=== PATIENT | female | born 1965 | race African-American/Black ===

== ENCOUNTER 2017-09-24 10:47 | Emergency (ER) | payer SELFPAY ==
[2017-09-24 10:54] VITALS: BMI 54.9
[2017-09-24] MEDS ORDERED: NITROSTAT SL ONE (10:54)
[2017-09-24] MEDS ORDERED: ASPIRIN ONE (10:54)
[2017-09-24] MEDS ORDERED: ECOTRIN TAB 325 MG PO PRN (10:55)
[2017-09-24] MEDS: NITROSTAT SL PRN ×3 (10:55→11:06)
[2017-09-24] MEDS ORDERED: NS 1000 ML 1,000 ML ONE (10:59)
[2017-09-24] MEDS ORDERED: ASPIRIN PO STA (10:59)
[2017-09-24] MEDS ORDERED: NS 1000 ML 1,000 ML IV SCH (11:00)
--- NOTE | 2017-09-24 11:00 | DR.GENAD ---
HPI - Complaint/Symptoms Chief Complaint Doctors Comments: Patient presents with complaint of chest pain associated with belching since [id number] renetta AM. She states that the pain is across her chest non radiating, no diaaphoresis. She denies cigarettes and states that she has no history of cardiopulmonary disease. She also reports shortness of breath PMH - PMH Past Medical History: Asthma, Hypertension Past Surgical History: No - Family History Family Medical History: Diabetes Mellitus, Hypertension - Social History Do you use any recreational Drugs:: No ROS - Review of Systems Constitutional: No Symptoms Reported Eyes: No Symptoms Reported ENTM: No Symptoms Reported Respiratoy: No Symptoms Reported Cardiovascular: See HPI Gastrointestinal/Abdominal: No Symptoms Reported Genitourinary: No Symptoms Reported Neurological: No Symptoms Reported Musculoskeletal: No Symptoms Reported Integumentary: No Symptoms Reported Hematologic/Lymphatic: No Symptoms Reported Endocrine: No Symptoms Reported Psychiatric: No Symptoms Reported All Other Systems: Reviewed and Negative PE - Vital Signs Vitals: Temperature 98.3 F Pulse Rate [Apical] 112 Pulse Rate 120 Respiratory Rate 22 Blood Pressure [Right Arm] 162/91 Blood Pressure 183/122 O2 Sat by Pulse Oximetry 100 - General General Appearance: Alert, In No Apparent Distress - Head Head Exam: Normal Inspection, Atraumatic - Eyes Eye exam: Normal Appearance, PERRL, EOMI - ENT ENT Exam: Normal Exam External Ear Exam: Normal External Inspection TM/Canal Exam: Bilateral Normal Nose Exam: Normal Nose Exam, Sinus Tenderness Mouth Exam: Normal Inspection Throat Exam: Normal Inspection - Neck Neck Exam: Normal Inspection - Chest Chest Inspection: Normal Inspection - Respiratory Respiratory Exam: Normal Lung Sounds Bilat Respiratory Exam: Bilateral Clear to Auscultation - Cardiovascular Cardiovascular Exam: Regular Rate, Normal Rhythm - Abdominal Exam Abdominal Exam: Normal Inspection Abdominal Tenderness: negative: RUQ, RLQ, LUQ, LLQ, Epigastrium, Suprapubic, Diffuse, Mild, Moderate, Severe, Other - Extremities Extremities Exam: Normal Inspection - Back Back Exam: Normal Inspection - Neurologic Neurological Exam: Alert, Oriented X3, CN II-XII Intact - Psychiatric Psychiatric Exam: Normal Affect - Skin Skin Exam: Warm, Dry Course - Reevaluation 1st: Improved (Denies chest pain at this time 12:45) - Consultation Called: 12:00 (Dr Doshi accepted for transfer for further evaluation) ROR - Labs Reviewed Result Diagrams: 09/24/17 11:05 09/24/17 11:05 Laboratory: WBC 10.6 X10^3/uL (3.6-10.0) H 09/24/17 11:05 RBC 4.72 X10^6/uL (3.5-5.4) 09/24/17 11:05 Hgb 12.8 g/dL (12.0-16.0) 09/24/17 11:05 Hct 38.0 % (36.0-47.0) 09/24/17 11:05 MCV 80.5 fL (80.0-100.0) 09/24/17 11:05 MCH 27.0 pg (27.0-34.0) 09/24/17 11:05 MCHC 33.6 g/dL (33.0-35.0) 09/24/17 11:05 RDW 15.5 % (11.6-16.5) 09/24/17 11:05 Plt Count 471 X10^3/uL (150.0-450.0) H 09/24/17 11:05 MPV 8.1 fL (7.4-11.0) 09/24/17 11:05 Neut % 65.9 % (42.0-75.0) 09/24/17 11:05 Lymph % 26.3 % (21.0-51.0) 09/24/17 11:05 [place] % 5.9 % (0.0-13.0) 09/24/17 11:05 Eos % 0.9 % (0.9-2.9) 09/24/17 11:05 Baso % 1.0 % (0.2-1.0) 09/24/17 11:05 Neut # 7.0 x10^3/uL (2.2-4.8) H 09/24/17 11:05 Lymph # 2.8 X10^3/uL (1.3-2.9) 09/24/17 11:05 [place] # 0.6 x10^3/uL (0.3-0.8) 09/24/17 11:05 Eos # 0.1 x10^3/uL (0.0-0.2) 09/24/17 11:05 Baso # 0.1 X10^3/uL (0.0-0.1) 09/24/17 11:05 Absolute Nucleated RBC 0.1 /100WBC 09/24/17 11:05 INR Target Range - 09/24/17 11:05 INR 1.03 (0.8-1.3) 09/24/17 11:05 D-Dimer 289 ng/mL (0-400) 09/24/17 11:05 Sodium 136 mmol/L (136-145) 09/24/17 11:05 Corrected Sodium 137 mmol/L (136-145) 09/24/17 11:05 Potassium 3.7 mmol/L (3.5-5.1) 09/24/17 11:05 Chloride 98 mmol/L (98-107) 09/24/17 11:05 Carbon Dioxide 27.0 mmol/L (21-32) 09/24/17 11:05 BUN 8 mg/dL (7-18) 09/24/17 11:05 Creatinine 0.92 mg/dL (0.55-1.02) 09/24/17 11:05 Est GFR (MDRD) Af Amer > 60 (>60) 09/24/17 11:05 Est GFR (MDRD) Non-Af > 60 (>60) 09/24/17 11:05 Glucose 147 mg/dL (65-99) H 09/24/17 11:05 Calcium 8.8 mg/dL (8.5-10.1) 09/24/17 11:05 Corrected Calcium 9.4 mg/dL (8.5-10.1) 09/24/17 11:05 Magnesium 1.9 mg/dL (1.7-2.9) 09/24/17 11:05 Total Bilirubin 0.50 mg/dL (0.2-1.0) 09/24/17 11:05 AST 17 Units/L (15-37) 09/24/17 11:05 ALT 22 Units/L (12-78) 09/24/17 11:05 Alkaline Phosphatase 98 Units/L (46-116) 09/24/17 11:05 Creatine Kinase 107 Units/L (26-192) 09/24/17 11:05 CK-MB (CK-2) 1.7 ng/mL (0-4.0) 09/24/17 11:05 CK/CKMB % Calc 1.6 % (<4) 09/24/17 11:05 Troponin I < 0.02 ng/mL (0-1.5) 09/24/17 11:05 Total Protein 8.3 g/dL (6.4-8.2) H 09/24/17 11:05 Albumin 3.2 g/dL (3.4-5.0) L 09/24/17 11:05 Globulin 5.1 g/dL (2.5-4.5) H 09/24/17 11:05 Albumin/Globulin Ratio 0.6 Ratio (1.1-2.1) L 09/24/17 11:05 H. pylori IgG Antibody Positive (NEGATIVE) A 09/24/17 11:05 - Diagnosis Discharge Problem: Helicobacter pylori gastritis Chest pain Qualifiers: Chest pain type: unspecified Qualified Code(s): R07.9 - Chest pain, unspecified - Discharge Plan Condition: Stable - Follow ups/Referrals Follow ups/Referrals: NFD,None [Primary Care Provider] - 3 days - Instructions
[2017-09-24] MEDS ORDERED: MORPHINE SULFATE INJ 4 MG IVP ONE (11:09)
[2017-09-24] MEDS ORDERED: MORPHINE SULFATE INJ 4 MG ONE (11:18)
[2017-09-24 11:28] LABS: BASOPHILS # (AUTO) 0.1 X10^3/uL (0.0-0.1); EOSINOPHILS # (AUTO) 0.1 x10^3/uL (0.0-0.2); EOSINOPHILS % (AUTO) 0.9 % (0.9-2.9); HEMOGLOBIN 12.8 g/dL (12.0-16.0); LYMPHOCYTES # (AUTO) 2.8 X10^3/uL (1.3-2.9); LYMPHOCYTES % (AUTO) 26.3 % (21.0-51.0); MEAN CORPUSCULAR HGB CONC 33.6 g/dL (33.0-35.0); MEAN CORPUSCULAR VOLUME 80.5 fL (80.0-100.0); MEAN PLATELET VOLUME 8.1 fL (7.4-11.0); MONOCYTES # (AUTO) 0.6 x10^3/uL (0.3-0.8); MONOCYTES % (AUTO) 5.9 % (0.0-13.0); NEUTROPHILS % (AUTO) 65.9 % (42.0-75.0); PLATELET COUNT 471 X10^3/uL (150.0-450.0); RED BLOOD COUNT 4.72 X10^6/uL (3.5-5.4); RED CELL DISTRIBUTION WIDTH 15.5 % (11.6-16.5); WHITE BLOOD COUNT 10.6 X10^3/uL (3.6-10.0)
[2017-09-24] MEDS ORDERED: NITROGLYCERIN IV PREMIX 50 MG 50 MG/250 ML BAG IV PRN (11:29)
[2017-09-24] MEDS ORDERED: NITROGLYCERIN IV PREMIX 50 MG 50 MG/250 ML BAG IV ONE (11:39)
[2017-09-24 11:42] LABS: BLOOD UREA NITROGEN 8 mg/dL (7-18); CALCIUM 8.8 mg/dL (8.5-10.1); CHLORIDE 98 mmol/L (98-107); COR NA(FOR HYPERGLY) 137 mmol/L (136-145); CREATININE 0.92 mg/dL (0.55-1.02); SODIUM 136 mmol/L (136-145); TROPONIN I < 0.02 ng/mL (0-1.5); eGFR BLACK RACES > 60 (>60); eGFR NON BLACK RACES > 60 (>60)
[2017-09-24 11:46] LABS: ALANINE AMINOTRANSFERASE 22 Units/L (12-78); ALBUMIN 3.2 g/dL (3.4-5.0); ALKALINE PHOSPHATASE 98 Units/L (46-116); ASPARTATE AMINO TRANSFERASE 17 Units/L (15-37); CKMB % 1.6 % (<4); COR CA(FOR HYPOALB) 9.4 mg/dL (8.5-10.1); CREATINE KINASE 107 Units/L (26-192); CREATINE KINASE MB 1.7 ng/mL (0-4.0); MAGNESIUM 1.9 mg/dL (1.7-2.9); TOTAL PROTEIN 8.3 g/dL (6.4-8.2)
--- NOTE | 2017-09-24 13:44 | RAD ---
Examination: AP chest History: Chest pain SOB Comparison 04/21/2016 Findings: Mild cardiomegaly. Grossly clear lungs although the submitted image is technically limited by artifact. There is no large pneumothorax or pleural fluid. Impression: Cardiomegaly. No acute abnormality identified. Reported By:
[2017-09-24 14:33] VITALS: BP 158/79
== END 2017-09-24 14:30 | disposition short-term general hospital (02) ==
LOC: ER 11:00
DX: R07.89 Other chest pain (principal); B96.81 Helicobacter pylori [H. pylori] as the cause of diseases classified elsewhere
CPT/HCPCS: 36415; 71045; 80053; 82550; 82553; 83735; 84484; 85025; 85378; 85610; 86677; 93005; 93010; 96365; 96367; 96374; 96375; 99284; 99285; A4222; J2270

== ENCOUNTER 2017-11-09 01:21 | Emergency (ER) | payer SELFPAY ==
[2017-11-09 01:28] VITALS: BP 172/81; BMI 51.4
--- NOTE | 2017-11-09 02:32 | DR.GENAD ---
HPI - PCP Primary Care Physician: LISA - HPI Comment HPI Comment: WORSE TONIGHT. RECENT CARDIAC WORK UP AND DIAGNOSE WITH CHF. TONIGHT PATIENT FEEL IF SHE THROW UP SHE WILL FEEL BETTER. DENIES FEVER. - Complaint/Symptoms Chief Complaint Doctors Comments: CHEST PAIN, SORENESS NOTED TODAY. Chief Complaint:: PT FEELING WOOZY; PT HAS HX OF CHF; NO SOB; BURNING SENSATION IN CHEST Self Treatment fo Chief Complaint: PT TOOK "WATER PILL" A FEW MINUTES AGO; LASIX 20MG TAB - Nurses notes reviewed Nurses Notes Review: Yes - Source History Provided: Patient - Mode of Arrival Mode of Arrival: Ambulatory - Timing Onset of Chief Complaint: 11/09/17 Came on: Suddenly - Duration Duration: Constant Duration: Days - Severity Severity: Moderate PMH - PMH Past Medical History: Yes Past Medical History: Hypertension Past Medical History Comment: CHF Past Surgical History: No - Family History History of Family Medical Conditions: No Family Medical History: Diabetes Mellitus, Hypertension - Social History Alcohol Use: None Do you use any recreational Drugs:: No Lives With: Alone Lives Where: Home - infectious screening In the last 2 months have you had wt loss of >10#?: NO Have you had fever, night sweats or hemotysis?: No Have you traveled outside the country in the last 6 months?: No Isolation: Standard ROS - Review of Systems Constitutional: Weakness, Fatigue. negative: Chills, Fever, Malaise Eyes: negative: Eye Pain, Discharge ENTM: negative: Ear Pain, Nose Discharge, Nose Congestion, Throat Swelling Respiratoy: Non-Productive Cough, Orthopnea, Short of Breath, Wheezing. negative: Hemoptysis Cardiovascular: Chest Pain, Edema (TRACE) Gastrointestinal/Abdominal: Nausea. negative: Abdominal Pain, Diarrhea, Vomiting Genitourinary: Frequency (TAKES DIURETIC). negative: Dysuria, Hematuria Neurological: Weakness. negative: Headache, Dizziness Musculoskeletal: Back Pain Integumentary: No Symptoms Reported Hematologic/Lymphatic: No Symptoms Reported Endocrine: No Symptoms Reported All Other Systems: Reviewed and Negative PE - Vital Signs Vitals: Temperature 98.5 F Pulse Rate 81 Respiratory Rate 22 Blood Pressure [Right Arm] 158/79 Blood Pressure 172/81 O2 Sat by Pulse Oximetry 100 - General Limitations: No Limitations General Appearance: Alert - Head Head Exam: Normal Inspection - Eyes Eye exam: Normal Appearance - ENT ENT Exam: Normal External Ear Exam External Ear Exam: Normal External Inspection TM/Canal Exam: Bilateral Normal Nose Exam: Normal Nose Exam Mouth Exam: Normal Inspection Throat Exam: Normal Inspection - Neck Neck Exam: Trachea Midline - Chest Chest Inspection: Symmetric Chest Wall Rise - Respiratory Respiratory Exam: Bilateral Wheezing, Bilateral Rhonchi, Upper Rhonchi, Lower Wheezing, Lower Rhonchi - Cardiovascular Cardiovascular Exam: Regular Rate, Normal Rhythm, Normal Heart Sounds - Abdominal Exam Abdominal Exam: Normal Bowel Sounds, Soft. negative: Tenderness - Extremities Extremities Exam: Edema (TRACE) - Back Back Exam: Normal Inspection - Neurologic Neurological Exam: Alert, Oriented X3 - Psychiatric Psychiatric Exam: Normal Affect, Normal Mood - Skin Skin Exam: Normal Color MDM - Differential Diagnosis Differential Diagnosis: CHEST PAIN, CHF, ND, PUD, GASTRITIS, UTI, KIGNEY STONE Course - Treatment Treatment: SEE ORDERS. - Reevaluation 1st: Improved (SPONTANOUS RESOLUTION OF SYMTOM WHILE IN ED.) - Education/Counseling Education/Counseling: Patient, Education Educated On: Diagnosis, Needs for Follow Up ROR - Labs Reviewed Laboratory Results Reviewed?: Yes Result Diagrams: 11/09/17 02:40 11/09/17 02:40 Laboratory: WBC 7.6 X10^3/uL (3.6-10.0) 11/09/17 02:40 RBC 4.89 X10^6/uL (3.5-5.4) 11/09/17 02:40 Hgb 13.2 g/dL (12.0-16.0) 11/09/17 02:40 Hct 39.6 % (36.0-47.0) 11/09/17 02:40 MCV 81.0 fL (80.0-100.0) 11/09/17 02:40 MCH 27.0 pg (27.0-34.0) 11/09/17 02:40 MCHC 33.3 g/dL (33.0-35.0) 11/09/17 02:40 RDW 15.2 % (11.6-16.5) 11/09/17 02:40 Plt Count 338 X10^3/uL (150.0-450.0) 11/09/17 02:40 MPV 8.0 fL (7.4-11.0) 11/09/17 02:40 Neut % 61.9 % (42.0-75.0) 11/09/17 02:40 Lymph % 26.0 % (21.0-51.0) 11/09/17 02:40 [place] % 8.2 % (0.0-13.0) 11/09/17 02:40 Eos % 3.0 % (0.9-2.9) H 11/09/17 02:40 Baso % 0.9 % (0.2-1.0) 11/09/17 02:40 Neut # 4.7 x10^3/uL (2.2-4.8) 11/09/17 02:40 Lymph # 2.0 X10^3/uL (1.3-2.9) 11/09/17 02:40 [place] # 0.6 x10^3/uL (0.3-0.8) 11/09/17 02:40 Eos # 0.2 x10^3/uL (0.0-0.2) 11/09/17 02:40 Baso # 0.1 X10^3/uL (0.0-0.1) 11/09/17 02:40 Absolute Nucleated RBC 0.0 /100WBC 11/09/17 02:40 Sodium 135 mmol/L (136-145) L 11/09/17 02:40 Corrected Sodium TNP 11/09/17 02:40 Potassium 4.0 mmol/L (3.5-5.1) 11/09/17 02:40 Chloride 98 mmol/L (98-107) 11/09/17 02:40 Carbon Dioxide 29.5 mmol/L (21-32) 11/09/17 02:40 BUN 10 mg/dL (7-18) 11/09/17 02:40 Creatinine 0.95 mg/dL (0.55-1.02) 11/09/17 02:40 Est GFR (MDRD) Af Amer > 60 (>60) 11/09/17 02:40 Est GFR (MDRD) Non-Af > 60 (>60) 11/09/17 02:40 Glucose 110 mg/dL (65-99) H 11/09/17 02:40 Calcium 8.5 mg/dL (8.5-10.1) 11/09/17 02:40 Corrected Calcium 9.2 mg/dL (8.5-10.1) 11/09/17 02:40 Total Bilirubin 0.30 mg/dL (0.2-1.0) 11/09/17 02:40 AST 16 Units/L (15-37) 11/09/17 02:40 ALT 27 Units/L (12-78) 11/09/17 02:40 Alkaline Phosphatase 92 Units/L (46-116) 11/09/17 02:40 Creatine Kinase 83 Units/L (26-192) 11/09/17 02:40 CK-MB (CK-2) < 1.0 ng/mL (0-4.0) 11/09/17 02:40 CK/CKMB % Calc 1.2 % (<4) 11/09/17 02:40 Troponin I < 0.02 ng/mL (0-1.5) 11/09/17 02:40 Total Protein 7.8 g/dL (6.4-8.2) 11/09/17 02:40 Albumin 3.1 g/dL (3.4-5.0) L 11/09/17 02:40 Globulin 4.7 g/dL (2.5-4.5) H 11/09/17 02:40 Albumin/Globulin Ratio 0.7 Ratio (1.1-2.1) L 11/09/17 02:40 - XRAY XRAY Interpreted by: Self XRAY Findings: XRAY DISCUSS WITH PATIENT. - EKG Rhythm: NSR (EKG NOTED) - Diagnosis Discharge Problem: Chest pain Qualifiers: Chest pain type: unspecified Qualified Code(s): R07.9 - Chest pain, unspecified - Discharge Plan Condition: Stable - Follow ups/Referrals Follow ups/Referrals: NFD,None [Primary Care Provider] - 3 days - Instructions Instructions: Chest Pain Observation Additional Instructions: RETURN TO ED IF WORSE.
[2017-11-09 02:53] LABS: BASOPHILS # (AUTO) 0.1 X10^3/uL (0.0-0.1); BASOPHILS % (AUTO) 0.9 % (0.2-1.0); EOSINOPHILS # (AUTO) 0.2 x10^3/uL (0.0-0.2); HEMATOCRIT 39.6 % (36.0-47.0); HEMOGLOBIN 13.2 g/dL (12.0-16.0); MEAN CORPUSCULAR HGB CONC 33.3 g/dL (33.0-35.0); MONOCYTES # (AUTO) 0.6 x10^3/uL (0.3-0.8); MONOCYTES % (AUTO) 8.2 % (0.0-13.0); NEUTROPHILS # (AUTO) 4.7 x10^3/uL (2.2-4.8); NEUTROPHILS % (AUTO) 61.9 % (42.0-75.0); PLATELET COUNT 338 X10^3/uL (150.0-450.0); RED BLOOD COUNT 4.89 X10^6/uL (3.5-5.4); RED CELL DISTRIBUTION WIDTH 15.2 % (11.6-16.5); WHITE BLOOD COUNT 7.6 X10^3/uL (3.6-10.0)
[2017-11-09 03:04] LABS: BLOOD UREA NITROGEN 10 mg/dL (7-18); CALCIUM 8.5 mg/dL (8.5-10.1); CARBON DIOXIDE 29.5 mmol/L (21-32); CHLORIDE 98 mmol/L (98-107); CREATININE 0.95 mg/dL (0.55-1.02); SODIUM 135 mmol/L (136-145); TROPONIN I < 0.02 ng/mL (0-1.5); eGFR BLACK RACES > 60 (>60); eGFR NON BLACK RACES > 60 (>60)
[2017-11-09 03:09] LABS: ALANINE AMINOTRANSFERASE 27 Units/L (12-78); ALBUMIN 3.1 g/dL (3.4-5.0); ALKALINE PHOSPHATASE 92 Units/L (46-116); ASPARTATE AMINO TRANSFERASE 16 Units/L (15-37); CKMB % 1.2 % (<4); COR CA(FOR HYPOALB) 9.2 mg/dL (8.5-10.1); CREATINE KINASE 83 Units/L (26-192); CREATINE KINASE MB < 1.0 ng/mL (0-4.0); TOTAL PROTEIN 7.8 g/dL (6.4-8.2)
--- NOTE | 2017-11-09 04:29 | RAD ---
Chest AP portable Indication: Burning in the chest. Comparison: 09/24/2017 Findings: There is no pneumothorax or effusion. There is no consolidation. Heart size is prominent. Impression: Prominent heart size without other acute chest process Reported By:
== END 2017-11-09 03:49 | disposition home or self-care (01) ==
LOC: ER 01:21
DX: R07.89 Other chest pain (principal); R94.31 Abnormal electrocardiogram [ECG] [EKG]
CPT/HCPCS: 36415; 71045; 80053; 82550; 82553; 84484; 85025; 93005; 93010; 99282; 99283; 99285